=== PATIENT | female | born 1975 | race American Indian/Alaskan Native ===

== ENCOUNTER 2019-04-15 07:54 | Inpatient (IN) | payer OTHER ==
--- NOTE | 2019-04-11 11:19 | Anesthesia Consultation ---
Anesthesia Consult and Med Hx Date of service: 04/15/19 - Airway Anesthetic Teeth Evaluation: Good ROM Head & Neck: Adequate Mental/Hyoid Distance: Adequate Mallampati Class: Class II Intubation Access Assessment: Good - Pulmonary Exam CTA: Yes - Cardiac Exam Cardiac Exam: No Murmur - Pre-Operative Health Status ASA Pre-Surgery Classification: ASA2 Proposed Anesthetic Plan: General Nerve Block: TAP - Pulmonary Hx Smoking: Yes - Central Nervous System Hx Psychiatric Problems: No - Hematic Hx Anemia: Yes - Other Systems Hx Alcohol Use: Yes (Occas) Hx Cancer: No
[2019-04-11 11:58] LABS: Hematocrit 35.7 % (30.3-42.9); Hemoglobin 11.5 gm/dl (10.1-14.3); Mean Corpuscular HGB Conc 32 % (30-34); Mean Corpuscular Volume 79 fl (79-97); Platelet Count 384 K/mm3 (140-440); Red Blood Count 4.51 M/mm3 (3.65-5.03)
[2019-04-11 12:52] LABS: Basophils % (Manual) 0 % (0.0-1.8); Total Cells Counted 100
[2019-04-11 12:53] LABS: Hypochromasia 1+; Platelet Estimate Consistent w Auto
[~2019-04-15 07:54] MED LIST: CELECOXIB 200 MG CAP PO NR
[2019-04-15] MEDS ORDERED: LACTATED RINGERS 1,000 ML ONE (08:45)
--- NOTE | 2019-04-15 08:46 | History and Physical Report ---
History of Present Illness Date of examination: 04/15/19 Date of admission: 04/15/19 07:54 Chief complaint: Symptomatic uterine fibroids History of present illness: Pt is a 43yo BF LMP 03/21/19 presents for surgical evaluation and treatment of uterine fibroids. She complained of heavy vaginal bleeding and pelvic pain. Pelvic u/s showed an enlarged uterus 22 x 18 x 12cm with multiple fibroids, and endometrial biopsy was benign. She does not desire future fertility, but desires ovarian conservation, and is therefore scheduled for a Total Abdominal Hystere ctomy with Bilateral Salpingectomy. 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 Family/Genetic History: none Social history: no significant social history, Medications and Allergies Allergies Allergy/AdvReac Type Severity Reaction Status Date / Time Sulfa (Sulfonamide Allergy [facility], Verified 04/08/19 17:12 Antibiotics) shaking Home Medications Medication Instructions Recorded Confirmed Last Taken Type Ibuprofen [Motrin 800 MG tab] 800 mg PO Q8H PRN 04/08/19 04/15/19 04/07/19 08:00 History Active Meds: Active Medications Celecoxib (Celebrex) 200 mg PO PREOP NR Stop: 04/15/19 16:00 Famotidine (Pepcid) 20 mg PO PREOP NR Stop: 04/15/19 23:49 Gabapentin (Gabapentin) 600 mg PO PREOP NR Stop: 04/15/19 23:59 Lactated Ringer's (Lactated Ringers) 1,000 mls @ 100 mls/hr IV DIRECT NAKITA Cefazolin Sodium (Ancef/Sterile Water 2 Gm/20 Ml) 2 gm in 20 mls @ 80 mls/hr IV PREOP NR; Protocol Midazolam HCl (Versed) 2 mg IV PREOP NR Stop: 04/15/19 23:59 Review of Systems All systems: negative - Vital Signs Vital signs: Vital Signs Temp Pulse Resp BP Pulse Ox 99.7 F H 82 20 131/92 100 04/11/19 11:00 04/11/19 11:00 04/11/19 11:00 04/11/19 11:00 04/11/19 11:00 Temp Pulse Resp BP Pulse Ox 99.7 F H 82 20 131/92 100 04/11/19 11:00 04/11/19 11:00 04/11/19 11:00 04/11/19 11:00 04/11/19 11:00 - Physical Exam Breasts: Positive: deferred Cardiovascular: Regular rate Lungs: Positive: Clear to auscultation Abdomen: Positive: normal appearance Genitourinary (Female): Positive: normal external genitalia Vagina: Positive: normal moisture Uterus: Positive: enlarged Extremities: Positive: normal Results Result Diagrams: 04/11/19 11:05 All other labs normal. Ultrasound: report reviewed Assessment and Plan - Patient Problems (1) Fibroids, intramural Onset Date: 04/15/19 Current Visit: Yes Status: Acute Plan to address problem: A: Symptomatic uterine fibroids P: Admit for a Total Abdominal Hysterectomy with Bilateral salpingectomy (2) Fibroids, submucosal Onset Date: 04/15/19 Current Visit: Yes Status: Acute (3) Fibroids, subserous Onset Date: 04/15/19 Current Visit: Yes Status: Acute
[2019-04-15] MEDS ORDERED: fentaNYL 100 MCG/2 ML INJ IV ONE (08:50)
[2019-04-15] MEDS ORDERED: HYDROmorphone 1 MG/1 ML INJ IV PRN (08:50)
[2019-04-15] MEDS ORDERED: dexAMETHasone 4 MG/ML VIAL ONE (08:50)
[2019-04-15] MEDS ORDERED: BUPIVACAINE-EPINEPHRINE/PF 0.25%-1:200,000 (30 ML) VIAL INFILTRATI ONE (08:50)
[2019-04-15] MEDS ORDERED: CELECOXIB 200 MG CAP PO NR (08:51)
[2019-04-15] MEDS ORDERED: MIDAZOLAM 2 MG/2 ML INJ IV NR ×2 (08:51→12:00)
[2019-04-15] MEDS ORDERED: GABAPENTIN 300 MG CAP PO NR ×2 (08:51→12:00)
--- NOTE | 2019-04-15 08:52 | Anesthesia Day of Surgery ---
Anesthesia Day of Surgery - Day of Surgery Patient Examined: Yes Patient H&P Reviewed: Yes Patient is NPO: Yes
[2019-04-15] MEDS ORDERED: FAMOTIDINE 20 MG TAB PO NR ×2 (09:00→12:00)
[2019-04-15] MEDS ORDERED: LACTATED RINGERS 1,000 ML IV SCH ×2 (09:00→12:00)
[2019-04-15] MEDS ORDERED: ceFAZolin/Water 2 GM/20 ML 2 GM/20 ML SYRINGE IV NR (09:00)
[2019-04-15] MEDS ORDERED: fentaNYL 250 MCG/5 ML INJ ONE (09:57)
[2019-04-15] MEDS ORDERED: ROCURONIUM 50 MG/5 ML INJ IV ONE (09:57)
[2019-04-15] MEDS ORDERED: PROPOFOL 200 MG/20 ML VIAL IV ONE (09:57)
[2019-04-15] MEDS ORDERED: LIDOCAINE MPF (2%) 20 MG/1 ML VIAL 5 ML ONE (09:57)
[2019-04-15] MEDS ORDERED: NEOSTIGMINE 10MG/10 ML INJ MDV ONE (10:03)
[2019-04-15] MEDS ORDERED: GLYCOPYRROLATE 0.4 MG/2 ML INJ ONE (10:03)
[2019-04-15] MEDS ORDERED: ONDANSETRON 4 MG/2 ML INJ ONE (10:03)
[2019-04-15] MEDS ORDERED: dexAMETHasone 20 MG/5 ML VIAL ONE (10:03)
[2019-04-15] MEDS ORDERED: PHENYLEPHRINE/NS 1,000 MCG/10 ML SYRINGE (OR USE) IV ONE (10:03)
[2019-04-15] MEDS ORDERED: CITRIC ACID-SOD CITRATE 500 ML IV ONE (10:29)
[2019-04-15] MEDS ORDERED: SODIUM CHLORIDE 0.9% IRR 1,500 ML BOTTLE IR ONE (12:00)
[2019-04-15] MEDS ORDERED: CITRIC ACID-SOD CITRATE SOLN 500 ML IV SOLN IV ONE (12:00)
--- NOTE | 2019-04-15 12:05 | Operative Report ---
Operative Report Operative Report: Date of procedure: 04/15/2019 Pre-operative diagnosis: 1. Symptomatic uterine fibroids Post-operative diagnosis: Same Procedure name(s): 1. Total abdominal hysterectomy 2. Bilateral salpingectomy Surgeon: Guillermo Amos MD Scrum Coach: Kylah Castellon CSA Anesthesia: LORI Block followed by general endotracheal intubation EBL: 400 mL's with 125mls returned by cell-saver Findings: A 20 -22 week size multi-myomatous uterus. Normal tubes and ovaries bilaterally. Procedure: After the patient was first correctly identified and after LORI block and general anesthesia was administered she was prepped and draped in usual in the usual sterile fashion and placed in the dorsolithotomy position. The skin knife was used to make a transverse skin incision. The incision was extended down to the layer of the fascia which was nicked in the midline and extended laterally using Bovie cautery. The rectus muscles were dissected off the rectus fascia both superiorly and inferiorly, the rectus bellies in the midline and the peritoneum was entered under direct visualization. Exploration of the pelvic organs found the uterus to be enlarged, extending above the umbilicus. The left and right fallopian tubes were normal but elongated, the ovaries were normal bilaterally. The uterus was elevated in the surgical field by the use of a single-toothed tenaculum. Next the bowels were packed back and the round ligaments were grasped, cauterized and cut using the Enseal device. The utero-ovarian ligament was clamped, cauterized and cut, thus freeing the right ovary from the right uterine sidewall. The same procedure was performed on the left. The left round ligament was clamped, cauterized and cut using the Enseal device, and the left utero-ovarian ligament was clamped, cauterized and cut thus freeing the left ovary and the left fallopian tube from the left uterine sidewall. The fallopian tubes were also cut along the mesosalpinx, thus freeing the tubes bilaterally. The uterine vessels were then skeletonized bilaterally, and the bladder flap was taken down anteriorly over a large lower uterine segment fibroid. The uterine vessels were then doubly clamped cut and suture ligated bilaterally, and the cardinal ligaments were sequentially clamped cut and suture ligated down to the level of the uterosacral ligaments. The cervix was then amputated from the vaginal cuff and the specimen was handed off the surgical field. The vaginal cuff was then made hemostatic using several sutures of 0 Vicryl suture in a [id number] configuration. After excellent hemostasis was assured copious amounts of irrigation was then performed. The Tisseel sealant was then sprayed across the vaginal cuff and the superior pedicles bilaterally and after excellent hemostasis was assured the procedure was considered complete. All instruments were removed from the abdomen, and the peritoneum was closed using 0 Vicryl suture in a running interlocking fashion and the rectus muscles were also loosely re-approximated using 0 Vicryl suture in a [id number] configuration. The fascia was then re-approximated using #1 Vicryl suture in a running interlocking fashion, the subcutaneous layer made hemostatic using Bovie cautery and the skin edges re-approximated using 4-0 Vicryl suture in a sub-cuticular fashion. Patient tolerated the procedure well was transported to recovery room in stable condition.
[2019-04-15] MEDS ORDERED: MAGNESIUM HYDROXIDE (MOM) ORAL LIQD UDC PO PRN (12:09)
[2019-04-15] MEDS ORDERED: ACETAMINOPHEN 325 MG TAB PO PRN (12:09)
[2019-04-15] MEDS ORDERED: ONDANSETRON 4 MG/2 ML INJ IV PRN (12:09)
[2019-04-15] MEDS ORDERED: MORPHINE 4 MG/1 ML INJ IV PRN (12:09)
[2019-04-15] MEDS ORDERED: MEPERIDINE 25 MG/1 ML INJ ONE (12:26)
[2019-04-15] MEDS ORDERED: MEPERIDINE 25 MG/1 ML INJ IV PRN (12:31)
[2019-04-15] MEDS: KETOROLAC 30 MG/1 ML INJ IV SCH ×3 (13:00→23:35)
--- NOTE | 2019-04-15 14:34 | Post Anesthesia Evaluation ---
- Post Anesthesia Evaluation Patient Participated: Yes Airway Patent: Yes Stable Respiratory Function: Yes Nausea/Vomiting: No Temp > 96.8F: Yes Pain Manageable: Yes Adequeate Hydration: Yes Anesthesia Complications: No
[2019-04-15] MEDS: ceFAZolin/NS 1 GM/50 ML 1 GM/50 ML BAG IV SCH ×2 (15:12→22:06)
[2019-04-15] MEDS: D5W/LACTATED RINGERS 1,000 ML IV SCH (18:55)
[2019-04-15] MEDS: oxyCODONE /ACETAMINOPHEN 5-325MG TAB PO PRN (18:59)
[2019-04-15] MEDS: DOCUSATE SODIUM 100 MG CAP PO SCH (22:06)
[2019-04-16] MEDS: D5W/LACTATED RINGERS 1,000 ML IV SCH (04:18)
[2019-04-16 06:35] LABS: Hematocrit 31.9 % (30.3-42.9); Hemoglobin 10.3 gm/dl (10.1-14.3)
[2019-04-16] MEDS ORDERED: diphenhydrAMINE 25 MG CAP PO PRN (06:53)
[2019-04-16] MEDS: KETOROLAC 30 MG/1 ML INJ IV SCH ×2 (07:34→17:00)
--- NOTE | 2019-04-16 08:59 | Progress Note ---
Assessment and Plan - Patient Problems (1) Fibroids, intramural Onset Date: 04/15/19 Current Visit: Yes Status: Resolved (2) Fibroids, submucosal Onset Date: 04/15/19 Current Visit: Yes Status: Resolved (3) Fibroids, subserous Onset Date: 04/15/19 Current Visit: Yes Status: Resolved (4) Status post total abdominal hysterectomy Onset Date: 04/16/19 Current Visit: Yes Status: Resolved Plan to address problem: A: S/P HUGO - POD #1 Doing well Asymptomatic anemia - stable P: Continue RPOC Anticipate discharge tomorrow. Subjective - Subjective Date of service: 04/16/19 Principal diagnosis: s/p HUGO - POD #1 Interval history: Pt is s/p a Total Abdominal Hysterectomy with Bilateral Salpingectomy and feeling well. She is tolerating a reg diet without nausea or vomiting. Patient reports: appetite normal, voiding normally, pain well controlled, flatus, ambulating normally, no dizzy ambulation, no nauseated Objective - Vital Signs Latest vital signs: Vital Signs Temp Pulse Resp BP BP Pulse Ox 04/16/19 05:27 98.0 F 52 L 20 108/66 99 04/16/19 01:41 97.4 F L 53 L 20 104/61 96 04/15/19 21:13 97.4 F L 67 18 102/62 97 04/15/19 18:59 20 04/15/19 18:32 20 04/15/19 15:41 97.4 F L 58 L 16 123/73 94 04/15/19 13:46 16 04/15/19 13:43 97.7 F 58 L 20 123/78 97 04/15/19 13:30 16 04/15/19 13:00 16 04/15/19 12:59 62 12 119/73 100 04/15/19 12:54 16 04/15/19 12:46 16 04/15/19 12:44 97.8 F 66 12 118/73 100 04/15/19 12:29 61 12 116/75 100 04/15/19 12:24 59 L 16 125/80 100 04/15/19 12:19 65 16 125/74 100 04/15/19 12:14 98 F 64 16 130/76 100 04/15/19 09:40 73 13 121/66 98 04/15/19 09:35 62 12 127/72 97 04/15/19 09:30 69 17 123/74 98 04/15/19 09:25 64 14 113/69 99 04/15/19 09:22 16 04/15/19 09:20 68 13 121/74 100 Intake and Output 04/15/19 04/16/19 04/16/19 22:59 06:59 14:59 Intake Total 50 1000 Balance 50 1000 Intake: IV 50 1000 ANCEF/NS 1 GM/50 ML 1 gm 50 In 50 ml @ 100 mls/hr IV Q8H NAKITA Rx#:[id number] 1,000 ml @ 125 mls/ 1000 hr IV DIRECT NAKITA Rx#: [id number] Other: Voiding Method Indwelling Catheter # Voids Indwelling Catheter 300 - Exam Breasts: Present: deferred Abdomen: Present: normal appearance, soft Extremities: Present: normal Incision: Present: normal, dry, intact - Labs Labs: Laboratory Tests 04/11/19 04/11/19 04/15/19 11:05 11:05 09:00 WBC 4.4 L RBC 4.51 Hgb 11.5 Hct 35.7 MCV 79 MCH 26 L MCHC 32 RDW 19.0 H Plt Count 384 Baso % (Auto) 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 Team Member Add Manual Diff Complete Total Counted 100 Seg Neuts % (Manual) 55.0 Band Neutrophils % 0 Lymphocytes % (Manual) 35.0 Reactive Lymphs % (Man) 0 Monocytes % (Manual) 7.0 Eosinophils % (Manual) 3.0 Basophils % (Manual) 0 Metamyelocytes % 0 Myelocytes % 0 Promyelocytes % 0 Blast Cells % 0 Nucleated RBC % Not Reportable Seg Neutrophils # Man 2.4 Band Neutrophils # 0.0 Lymphocytes # (Manual) 1.5 Abs React Lymphs (Man) 0.0 Monocytes # (Manual) 0.3 Eosinophils # (Manual) 0.1 Basophils # (Manual) 0.0 Metamyelocytes # 0.0 Myelocytes # 0.0 Promyelocytes # 0.0 Blast Cells # 0.0 WBC Morphology Not Reportable Hypersegmented Neuts Not Reportable Hyposegmented Neuts Not Reportable Hypogranular Neuts Not Reportable Smudge Cells Not Reportable Toxic Granulation Not Reportable Toxic Vacuolation Not Reportable Dohle Bodies Not Reportable Pelger-Huet Anomaly Not Reportable Akbar Rods Not Reportable Platelet Estimate Consistent w auto Clumped Platelets Not Reportable Plt Clumps, EDTA Not Reportable Large Platelets Not Reportable Giant Platelets Not Reportable Platelet Satelliting Not Reportable Plt Morphology Comment Not Reportable RBC Morphology Not Reportable Dimorphic RBCs Not Reportable Polychromasia Not Reportable Hypochromasia 1+ Poikilocytosis Not Reportable Anisocytosis Not Reportable Microcytosis Not Reportable Macrocytosis Not Reportable Spherocytes Not Reportable Pappenheimer Bodies Not Reportable Sickle Cells Not Reportable Target Cells Not Reportable Tear Drop Cells Not Reportable Ovalocytes Not Reportable Helmet Cells Not Reportable [place] Bodies Not Reportable Penrose Rings Not Reportable Jamila Cells Not Reportable Bite Cells Not Reportable Crenated Cell Not Reportable Elliptocytes Not Reportable Acanthocytes (Spur) Not Reportable Rouleaux Not Reportable Hemoglobin C Crystals Not Reportable Schistocytes Not Reportable Malaria parasites Not Reportable Colby Bodies Not Reportable Hem Pathologist Commnt No HCG, Qual Negative Blood Type B POSITIVE Antibody Screen Negative 04/16/19 05:36 WBC RBC Hgb 10.3 Hct 31.9 MCV MCH MCHC RDW Plt Count Baso % (Auto) Add Manual Diff Total Counted Seg Neuts % (Manual) Band Neutrophils % Lymphocytes % (Manual) Reactive Lymphs % (Man) Monocytes % (Manual) Eosinophils % (Manual) Basophils % (Manual) Metamyelocytes % Myelocytes % Promyelocytes % Blast Cells % Nucleated RBC % Seg Neutrophils # Man Band Neutrophils # Lymphocytes # (Manual) Abs React Lymphs (Man) Monocytes # (Manual) Eosinophils # (Manual) Basophils # (Manual) Metamyelocytes # Myelocytes # Promyelocytes # Blast Cells # WBC Morphology Hypersegmented Neuts Hyposegmented Neuts Hypogranular Neuts Smudge Cells Toxic Granulation Toxic Vacuolation Dohle Bodies Pelger-Huet Anomaly Akbar Rods Platelet Estimate Clumped Platelets Plt Clumps, EDTA Large Platelets Giant Platelets Platelet Satelliting Plt Morphology Comment RBC Morphology Dimorphic RBCs Polychromasia Hypochromasia Poikilocytosis Anisocytosis Microcytosis Macrocytosis Spherocytes Pappenheimer Bodies Sickle Cells Target Cells Tear Drop Cells Ovalocytes Helmet Cells [place] Bodies Penrose Rings Jamila Cells Bite Cells Crenated Cell Elliptocytes Acanthocytes (Spur) Rouleaux Hemoglobin C Crystals Schistocytes Malaria parasites Colby Bodies Hem Pathologist Commnt HCG, Qual Blood Type Antibody Screen
[2019-04-16] MEDS: DOCUSATE SODIUM 100 MG CAP PO SCH ×2 (09:57→21:18)
[2019-04-16] MEDS: HYDROcodone/ACETAMINOPHEN 5-325 MG TAB PO PRN ×2 (16:11→20:02)
[2019-04-16] MEDS: oxyCODONE /ACETAMINOPHEN 5-325MG TAB PO PRN (21:18)
[2019-04-17] MEDS: oxyCODONE /ACETAMINOPHEN 5-325MG TAB PO PRN (10:10)
[2019-04-17] MEDS: DOCUSATE SODIUM 100 MG CAP PO SCH (10:11)
--- NOTE | 2019-04-17 11:32 | Progress Note ---
Assessment and Plan - Patient Problems (1) Fibroids, intramural Onset Date: 04/15/19 Current Visit: Yes Status: Resolved (2) Fibroids, submucosal Onset Date: 04/15/19 Current Visit: Yes Status: Resolved (3) Fibroids, subserous Onset Date: 04/15/19 Current Visit: Yes Status: Resolved (4) Status post total abdominal hysterectomy Onset Date: 04/16/19 Current Visit: Yes Status: Resolved Plan to address problem: A: S/P HUGO - POD #2 Doing well Asymptomatic anemia - stable P: May go home today. Subjective - Subjective Date of service: 04/17/19 Principal diagnosis: s/p HUGO - POD #2 Interval history: Pt is s/p a Total Abdominal Hysterectomy with Bilateral Salpingectomy and feeling well. She is tolerating a reg diet without nausea or vomiting, ambulating and voiding without difficulty, and ready to go home. Patient reports: appetite normal, voiding normally, pain well controlled, flatus, ambulating normally, no dizzy ambulation, no nauseated Objective - Vital Signs Latest vital signs: Vital Signs Temp Pulse Resp BP BP Pulse Ox 04/17/19 07:26 98.1 F 61 16 100/63 98 04/17/19 04:28 97.9 F 59 L 20 112/75 98 04/17/19 00:18 98.0 F 56 L 20 104/55 99 04/16/19 20:59 97.8 F 59 L 20 125/74 99 04/16/19 16:11 20 04/16/19 15:40 99.4 F 78 18 131/79 100 04/16/19 13:05 98.4 F 67 18 119/64 99 Intake and Output 04/16/19 04/17/19 04/17/19 22:59 06:59 14:59 Intake Total 960 360 360 Balance 960 360 360 Intake: Oral 360 360 Intake, Free Water 960 Other: Total, Intake Amount 120 360 Voiding Method Toilet # Voids Indwelling Catheter 1 1 Void 1 # Bowel Movements 1 - Exam Abdomen: Present: normal appearance, soft Incision: Present: normal, dry, intact
--- NOTE | 2019-04-17 12:21 | Discharge Summary ---
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 She complained of heavy vaginal bleeding and pelvic pain. Pelvic u/s showed an enlarged uterus 22 x 18 x 12cm with multiple fibroids, and endometrial biopsy was benign. She did not desire future fertility, but desired ovarian conservation, and therefore underwent an uncomplicated Total Abdominal Hysterectomy with Bilateral Salpingectomy. By POD #2 she was tolerating a reg diet without nausea or vomiting, ambulating and voiding without difficulty. She was therefore discharged to home on POD #2 in stable condition. Condition at discharge: Good Disposition: [id number] TO HOME OR SELFCARE - Discharge Diagnoses (1) Fibroids, intramural Status: Resolved (2) Fibroids, submucosal Status: Resolved (3) Fibroids, subserous Status: Resolved (4) Status post total abdominal hysterectomy Status: Resolved Plan - Discharge Medications Prescriptions: Ibuprofen [Motrin] 800 mg PO Q8HR PRN #30 tablet PRN Reason: Pain, Mild (1-3) oxyCODONE /ACETAMINOPHEN [Percocet 5/325 mg] 1 tab PO Q6H PRN #30 tablet PRN Reason: Pain, Moderate (4-6) - Provider Discharge Summary Activity: routine, no sex for 6 weeks, no heavy lifting 4 weeks, no strenuous exercise Diet: routine Instructions: routine Additional instructions: [] Smoking cessation referral if applicable(refer to patient education folder for contact #) [] Refer to [facility] Booklet Call your doctor immediately for: * Fever > 100.5 * Heavy vaginal bleeding ( >1 pad per hour) * Severe persistent headache * Shortness of breath * Reddened, hot, painful area to leg or breast * Drainage or odor from incision. * Keep incision clean and dry at all times and follow doctor's instructions regarding bathing/showering - Follow up plan Follow up: PRIMARY CAREMD [Primary Care Provider] - 7 Days EMERITA RAJAN MD [Staff Physician] - 14 Days Forms: [facility] Discharge Summary
[2019-04-17 12:28] VITALS: BP 125/72
== END 2019-04-17 13:20 | disposition home or self-care (01) | DRG 743 ==
LOC: 3A 07:54 → OB 12:50
PROVIDERS: ADMIT Obstetrics & Gynecology; ATTEND Obstetrics & Gynecology
PROC: 0UT90ZZ Resection of Uterus, Open Approach (ICD-10-PCS; principal; 2019-04-15)
PROC: 0UT70ZZ Resection of Bilateral Fallopian Tubes, Open Approach (ICD-10-PCS; 2019-04-15)
PROC: 3E0T3BZ Introduction of Anesthetic Agent into Peripheral Nerves and Plexi, Percutaneous Approach (ICD-10-PCS; 2019-04-15)
DX: D25.1 Intramural leiomyoma of uterus (principal); D25.0 Submucous leiomyoma of uterus; D25.2 Subserosal leiomyoma of uterus; D64.9 Anemia, unspecified; N92.0 Excessive and frequent menstruation with regular cycle
CPT/HCPCS: 36415; 64450; 84703; 85007; 85014; 85018; 85025; 86850; 86900; 86901; 88307; 88342; G0378; C1765; C9250; J0690; J1100; J1170; J1885; J2175; J2250; J2370; J2405; J2704; J2710; J3010; J7120; J7121